=== PATIENT | male | born 1985 ===

== ENCOUNTER 2022-02-14 04:33 | Day surgery (SDC) | payer OTHER ==
[2022-02-10 12:16] VITALS: BMI 22.8
[2022-02-14] MEDS ORDERED: BUPIVACAINE HCL/PF 0.5% (5MG/ML) 10 ML VIAL ONE (09:49)
[2022-02-14] MEDS ORDERED: BACITRACIN 15 GM TUBE TOPICAL OINTMENT ONE (10:01)
[2022-02-14] MEDS ORDERED: BUPIVACAINE HCL/PF 0.5% (5MG/ML) 10 ML VIAL IJ ONE ×2 (10:03→10:59)
[2022-02-14] MEDS ORDERED: MIDAZOLAM HCL 2 MG/2 ML SINGLE DOSE VIAL ONE (10:12)
[2022-02-14] MEDS ORDERED: PROPOFOL 20 ML ONE ×2 (10:12)
[2022-02-14] MEDS ORDERED: ceFAZolin SODIUM 1 GM VIAL ONE (10:13)
[2022-02-14] MEDS ORDERED: DEXAMETHASONE SOD PHOSPHATE 4 MG/1 ML VIAL ONE (10:13)
[2022-02-14] MEDS ORDERED: LIDOCAINE HCL/PF 2% SDV 5ML VIAL ONE (10:13)
[2022-02-14] MEDS ORDERED: ONDANSETRON 4 MG/2 ML VIAL ONE (10:13)
[2022-02-14] MEDS ORDERED: SODIUM CHLORIDE 0.9% P/F 10 ML VIAL IJ ONE (10:21)
[2022-02-14] MEDS ORDERED: ceFAZolin SODIUM 1 GM VIAL IVPB ONE (10:35)
[2022-02-14] MEDS ORDERED: oxyCODONE HCL 5 MG TABLET PO PRN (12:09)
[2022-02-14] MEDS ORDERED: ACETAMINOPHEN 325 MG TABLET (FP) PO PRN (12:09)
[2022-02-14] MEDS ORDERED: ONDANSETRON 4 MG/2 ML VIAL IVPUSH PRN (12:09)
[2022-02-14] MEDS ORDERED: LACTATED RINGERS SOLUTION 1,000 ML IV SCH (12:15)
[2022-02-14 14:12] VITALS: BP 113/71; PULSE 69; TEMP 97.8
== END 2022-02-14 13:50 | disposition home or self-care (01) ==
LOC: JASU-SURG 04:33 → EDSEX 11:30 → JASU-SURG 13:50
PROVIDERS: ATTEND Urology
PROC: 0VNT0ZZ Release Prepuce, Open Approach (ICD-10-PCS; principal; 2022-02-14 10:00)
DX: N47.1 Phimosis (principal); N48.89 Other specified disorders of penis
CPT/HCPCS: 88304-TC; 94760